=== PATIENT | female | born 2005 | race African-American/Black ===

== ENCOUNTER 2025-09-28 01:19 | Emergency (ER) | payer OTHER ==
[~2025-09-28] VITALS: Ht 172.7 cm; Wt 50.0 kg
[2025-09-28 02:08] LABS: PLATELET COUNT, AUTOMATED 236 10^3/uL (150-450)
[2025-09-28 02:29] LABS: ETHYL ALCOHOL (ETHANOL) 0.016 % (0.000-0.010)
[2025-09-28 02:31] LABS: ALT/SGPT 27 U/L (7.0-40); AST/SGOT 24 U/L (<34); CALCIUM LEVEL 8.8 MG/DL (8.5-10.1); CARBON DIOXIDE LEVEL 25 MMOL/L (20-31); CHLORIDE LEVEL 107 MMOL/L (98-107); CREATININE FOR GFR 0.88 MG/DL (0.55-1.30); GLOMERULAR FILTRATION RATE > 90.0 (>60); POTASSIUM SERUM 3.7 MMOL/L (3.5-5.1); SALICYLATE LEVEL < 3.0 MG/DL (<30); SODIUM LEVEL 143 MMOL/L (136-145)
[2025-09-28 02:41] VITALS: BP 117/70; TEMP 99; O2SAT 100
[2025-09-28 03:43] LABS: AMPHETAMINES LEVEL URINE NEGATIVE (NEGATIVE); BARBITURATES URINE NEGATIVE (NEGATIVE); BENZODIAZEPINES URINE NEGATIVE (NEGATIVE); CANNABINOIDS URINE NEGATIVE (NEGATIVE); COCAINE METABOLITE URINE NEGATIVE (NEGATIVE); METHADONE URINE NEGATIVE (NEGATIVE); OPIATES URINE NEGATIVE (NEGATIVE); PHENCYCLIDINE URINE NEGATIVE (NEGATIVE)
== END 2025-09-28 04:32 | disposition home or self-care (01) ==
LOC: M ED 01:19
DX: Z04.6 Encounter for general psychiatric examination, requested by authority (principal); F10.10 Alcohol abuse, uncomplicated